=== PATIENT | female | born 1985 | race Caucasian/White ===

== ENCOUNTER 2018-01-02 17:52 | Emergency (ER) | payer MEDICAID ==
[~2018-01-02] VITALS: Ht 170.2 cm; Wt 65.2 kg
[2018-01-02 18:59] VITALS: BP 108/60
[2018-01-02] MEDS ORDERED: CEFTRIAXONE 250 MG IM ONE (19:00)
[2018-01-02] MEDS ORDERED: AZITHROMYCIN 500 MG TABLET PO ONE (19:00)
[2018-01-02 19:01] LABS: BASOPHILS # (AUTO) 0.11 x10^3/uL (0-0.1); BASOPHILS % (AUTO) 1 % (0-1); EOSINOPHILS # (AUTO) 0.16 x10^3/uL (0-0.4); EOSINOPHILS % (AUTO) 1 % (1-7); LYMPHOCYTES # (AUTO) 2.66 x10^3/uL (1-3.4); LYMPHOCYTES % (AUTO) 23 % (22-44); MD NO; MEAN CORPUSCULAR HEMOGLOBIN 32.3 pg (27.0-34.8); MEAN CORPUSCULAR HGB CONC 33.4 g/dL (32.4-35.8); MEAN CORPUSCULAR VOLUME 96.6 fL (80-100); MEAN PLATELET VOLUME 8.1 fL (7.4-10.4); MONOCYTES % (AUTO) 7 % (2-9); NEUTROPHILS # (AUTO) 8.05 x10^3/uL (1.8-6.8); NEUTROPHILS % (AUTO) 68 % (42-75); PLATELET COUNT 306 x10^3/uL (130-400); RED BLOOD COUNT 4.22 x10^6/uL (3.82-5.3); RED CELL DISTRIBUTION WIDTH 13.4 % (9.6-15.2)
[2018-01-02 19:02] LABS: MICROSCOPIC NOT IND
[2018-01-02] MEDS ORDERED: AZITHROMYCIN 250 MG TABLET ONE (19:11)
[2018-01-02] MEDS ORDERED: CEFTRIAXONE 1,000 MG ONE (19:11)
[2018-01-02 19:13] LABS: CULTURE INDICATED? NO
[2018-01-02 19:13] LABS: CLUE CELLS PRESENT (NONE SEEN); WET PREP WBCS NONE SEEN (FEW)
[2018-01-02] MEDS ORDERED: PLEASE ENTER ALLERGIES MC SCH (19:30)
== END 2018-01-02 21:10 | disposition home or self-care (01) ==
LOC: ED 21:00
DX: N76.0 Acute vaginitis (principal); N83.201 Unspecified ovarian cyst, right side; B96.89 Other specified bacterial agents as the cause of diseases classified elsewhere
CPT/HCPCS: 36415; 76830; 81003; 84703; 85025; 87210; 87491; 87591; 87808; 96372; 99285; J0696

== ENCOUNTER 2018-05-11 12:03 | Emergency (ER) | payer MEDICAID ==
[~2018-05-11] VITALS: Ht 170.2 cm; Wt 62.7 kg
[2018-05-11 12:11] VITALS: BP 99/68
[2018-05-11] MEDS ORDERED: APIX5TAB PO (12:41)
[2018-05-11 13:05] LABS: MICROSCOPIC NOT IND
[2018-05-11 13:06] LABS: CULTURE INDICATED? NO; HCG UR SG 1.015 (1.003-1.030)
== END 2018-05-11 14:05 | disposition home or self-care (01) ==
LOC: ED 13:50
DX: N76.0 Acute vaginitis (principal); N89.8 Other specified noninflammatory disorders of vagina
CPT/HCPCS: 81003; 81025; 99284

== ENCOUNTER 2018-11-05 13:32 | Emergency (ER) | payer SELFPAY ==
[~2018-11-05] VITALS: Ht 170.2 cm; Wt 63.4 kg
[~2018-11-05 13:32] MED LIST: APIX5TAB PO
[2018-11-05 14:10] VITALS: BP 138/75
--- NOTE | 2018-11-05 14:45 | NUR ---
UA COLLECTED AND SENT TO LAB. PA STUDENT AT BS FOR INITIAL ASSESSMENT. PT/ROOM/ALEJANDRARJASON PREPARED FOR PELVIC EXAM
[2018-11-05 14:57] LABS: HCG UR SG 1.033 (1.003-1.030); MICROSCOPIC NOT IND
[2018-11-05 15:05] LABS: CULTURE INDICATED? NO
[2018-11-05 16:09] LABS: CLUE CELLS PRESENT (NONE SEEN); WET PREP WBCS FEW (FEW)
[2018-11-05] MEDS ORDERED: AZITHROMYCIN 250 MG TABLET ONE (16:29)
[2018-11-05] MEDS ORDERED: CEFTRIAXONE 250 MG ONE (16:29)
[2018-11-05] MEDS ORDERED: AZITHROMYCIN 250 MG TABLET PO ONE (16:30)
[2018-11-05] MEDS ORDERED: CEFTRIAXONE 250 MG IM ONE (16:30)
--- NOTE | 2018-11-05 16:43 | NUR ---
PT MEDICATED PER EMAR. PT REPORTS HAVING TAKEN SAME RX PRIOR WO S/S OF RXN. DESPITE EDUCATION, PT REQUESTING DC. DC EDUCATION PROVIDED, PT DEMONSTRATES UNDERSTANDING. PT AMBULATED STEADILY TO DC WITH RN
== END 2018-11-05 16:47 | disposition home or self-care (01) ==
LOC: ED 15:50
DX: N76.0 Acute vaginitis (principal); Z90.49 Acquired absence of other specified parts of digestive tract
CPT/HCPCS: 81003; 81025; 87210; 87491; 87591; 87808; 96372; 99283; J0696

== ENCOUNTER 2018-11-26 20:27 | Emergency (ER) | payer SELFPAY ==
[~2018-11-26] VITALS: Ht 170.2 cm; Wt 63.2 kg
[2018-11-26 20:29] VITALS: BP 116/62
[2018-11-26] MEDS ORDERED: ACYC-113 PO (20:33)
[2018-11-26 21:16] LABS: MICROSCOPIC NOT IND
[2018-11-26 21:18] LABS: CULTURE INDICATED? NO
[2018-11-26] MEDS ORDERED: ACETAMINOPHEN 325 MG TABLET PO ONE (21:30)
[2018-11-26 21:37] LABS: BASOPHILS # (AUTO) 0.04 x10^3/uL (0-0.1); BASOPHILS % (AUTO) 1 % (0-1); EOSINOPHILS # (AUTO) 0.13 x10^3/uL (0-0.4); EOSINOPHILS % (AUTO) 2 % (1-7); LYMPHOCYTES # (AUTO) 3.05 x10^3/uL (1-3.4); LYMPHOCYTES % (AUTO) 43 % (22-44); MD NO; MEAN CORPUSCULAR HEMOGLOBIN 32.9 pg (27.0-34.8); MEAN CORPUSCULAR HGB CONC 34.2 g/dL (32.4-35.8); MEAN CORPUSCULAR VOLUME 96.4 fL (80-100); MEAN PLATELET VOLUME 8.3 fL (7.4-10.4); MONOCYTES # (AUTO) 0.56 x10^3/uL (0.2-0.8); MONOCYTES % (AUTO) 8 % (2-9); NEUTROPHILS # (AUTO) 3.26 x10^3/uL (1.8-6.8); NEUTROPHILS % (AUTO) 46 % (42-75); PLATELET COUNT 263 x10^3/uL (130-400); RED BLOOD COUNT 3.93 x10^6/uL (3.82-5.3); RED CELL DISTRIBUTION WIDTH 13.4 % (9.6-15.2)
[2018-11-26 21:49] LABS: ALANINE AMINOTRANSFERASE 17 U/L (12-78); ALBUMIN 3.6 g/dL (3.4-5.0); ANION GAP 7 mmol/L (5-15); CALCIUM 8.5 mg/dL (8.5-10.1); CHLORIDE 108 mmol/L (98-107); CREATININE 0.73 mg/dL (0.55-1.02)
[2018-11-26 21:54] LABS: ALKALINE PHOSPHATASE 36 U/L (45-117); BILIRUBIN,TOTAL 0.2 mg/dL (0.2-1.0); TOTAL PROTEIN 6.7 g/dL (6.4-8.2)
[2018-11-26 22:57] LABS: WET PREP WBCS NONE SEEN (FEW)
[2018-11-26 23:01] LABS: CLUE CELLS PRESENT (NONE SEEN)
[2018-11-26] MEDS ORDERED: ACETAMINOPHEN 325 MG TABLET ONE (23:26)
== END 2018-11-26 23:45 | disposition home or self-care (01) ==
LOC: ED 21:04
DX: N76.0 Acute vaginitis (principal); G89.11 Acute pain due to trauma; M25.512 Pain in left shoulder
CPT/HCPCS: 36415; 80053; 81003; 84703; 85025; 87210; 87491; 87591; 87808; 99284

== ENCOUNTER 2019-11-18 08:40 | Emergency (ER) | payer MEDICAID, OTHER ==
[~2019-11-18] VITALS: Ht 170.2 cm; Wt 65.8 kg
[~2019-11-18 08:40] MED LIST changes: +ACYC-113 PO
--- NOTE | 2019-11-18 08:55 | NUR ---
Per pt, "flu like" symptoms x1 week. Dry cough, sensation of having a fever. NAD noted at this time. No WOB noted. spo2 monitoring, pt saturating well on RA. Pt has mask in place. Door closed.
[2019-11-18 09:28] LABS: BASOPHILS # (AUTO) 0.03 x10^3/uL (0-0.1); BASOPHILS % (AUTO) 1 % (0-1); EOSINOPHILS # (AUTO) 0.09 x10^3/uL (0-0.4); EOSINOPHILS % (AUTO) 2 % (1-7); LYMPHOCYTES # (AUTO) 2.07 x10^3/uL (1-3.4); LYMPHOCYTES % (AUTO) 41 % (22-44); MD NO; MEAN CORPUSCULAR HEMOGLOBIN 32.2 pg (27.0-34.8); MEAN CORPUSCULAR VOLUME 97.7 fL (80-100); MONOCYTES # (AUTO) 0.53 x10^3/uL (0.2-0.8); MONOCYTES % (AUTO) 10 % (2-9); NEUTROPHILS # (AUTO) 2.37 x10^3/uL (1.8-6.8); NEUTROPHILS % (AUTO) 47 % (42-75); PLATELET COUNT 258 x10^3/uL (130-400); RED CELL DISTRIBUTION WIDTH 12.9 % (9.6-15.2)
[2019-11-18] MEDS ORDERED: HYDROcodone/APAP 7.5-325MG/15ML UDC PO ONE (09:30)
[2019-11-18] MEDS ORDERED: HYDROcodone/APAP 7.5-325MG/15ML UDC ONE (09:56)
[2019-11-18 10:00] VITALS: BP 114/66
--- NOTE | 2019-11-18 10:02 | NUR ---
NAD noted in pt at this time. Pt laying on side in bed. Ambulates well independently to bathroom and back.
--- NOTE | 2019-11-18 11:00 | NUR ---
pt reports full body aches gone, now just soreness in ribs/chest remains. No WOB. NAD noted.
--- NOTE | 2019-11-18 11:20 | NUR ---
Pt up for recheck. NAD noted at this time.
--- NOTE | 2019-11-18 11:47 | NUR ---
AWAITING CHART FROM PROVIDER FOR DC.
== END 2019-11-18 11:58 | disposition home or self-care (01) ==
LOC: ED 08:59
DX: B34.9 Viral infection, unspecified (principal); B35.4 Tinea corporis; F17.290 Nicotine dependence, other tobacco product, uncomplicated
CPT/HCPCS: 36415; 71045; 85025; 87081; 87880; 99284

== ENCOUNTER 2019-11-22 07:43 | Emergency (ER) | payer MEDICAID ==
[~2019-11-22] VITALS: Ht 170.2 cm; Wt 64.4 kg
--- NOTE | 2019-11-22 07:56 | NUR ---
[facility] BS FOR EXAM. PT C/O RINGWORM LESIONS SPREADING ALL OVER BODY. STARTED W/ "LARGE" PATCH ON LT UPPER CHEST. NOT IMPROVING W/ ANTIFUNGAL. HAS USED BLEACH AND APPLE CIDER APPLICATIONS W/OUT RELIEF.
[2019-11-22 08:07] VITALS: BP 114/69
--- NOTE | 2019-11-22 08:10 | NUR ---
PT REPORTS SEVERE ALLERGY TO TREE NUTS AND BEE STINGS. STATES SHE DOESN'T HAVE AN EPI PEN BUT WOULD LIKE A SCRIPT FOR ONE. STATES SHE DOESN'T HAVE A PCP YET. AC WILL BE NOTIFIED.
== END 2019-11-22 08:30 | disposition home or self-care (01) ==
LOC: ED 08:20
DX: L42 Pityriasis rosea (principal); Z76.0 Encounter for issue of repeat prescription
CPT/HCPCS: 99281

== ENCOUNTER 2019-12-11 09:23 | Emergency (ER) | payer MEDICAID ==
[~2019-12-11] VITALS: Ht 170.2 cm; Wt 63.6 kg
[2019-12-11] MEDS ORDERED: EPINEPHRINE 1 MG/ML, 1ML SQ ONE (09:30)
[2019-12-11] MEDS ORDERED: FAMOTIDINE 20 MG/2 ML IVPush ONE (09:30)
[2019-12-11] MEDS ORDERED: DEXAMETHASONE 4 MG/ML, 1ML IVPush ONE (09:30)
[2019-12-11] MEDS ORDERED: SODIUM CHLORIDE FLUSH 10ML SYR IVF ONE (09:30)
[2019-12-11] MEDS ORDERED: DEXAMETHASONE 4 MG/ML, 5ML ONE (09:34)
[2019-12-11] MEDS ORDERED: EPINEPHRINE 1 MG/ML, 1ML ONE (09:35)
[2019-12-11] MEDS ORDERED: FAMOTIDINE 20 MG/2 ML ONE (09:35)
--- NOTE | 2019-12-11 10:28 | NUR ---
PT SLEEPING IN GURNEY, HIVES AND FACIAL SWELLING ALMOST ENTIRELY RESOLVED. NO NAUSEA, 1L IVF INFUSING
[2019-12-11] MEDS ORDERED: SODIUM CHLORIDE 0.9% 1,000ML IVBOLUS ONE (10:30)
[2019-12-11 11:54] VITALS: BP 110/74
== END 2019-12-11 11:56 | disposition home or self-care (01) ==
LOC: ED 10:10
DX: T78.05XA Anaphylactic reaction due to tree nuts and seeds, initial encounter (principal); L50.0 Allergic urticaria; F17.200 Nicotine dependence, unspecified, uncomplicated; R06.02 Shortness of breath; X58.XXXA Exposure to other specified factors, initial encounter
CPT/HCPCS: 96372; 96374; 96375; 99284; J0171; J1100; J3490; J7030

== ENCOUNTER 2020-01-01 11:29 | Emergency (ER) | payer MEDICAID ==
[2020-01-01 11:32] VITALS: BP 108/75
--- NOTE | 2020-01-01 11:47 | NUR ---
PT AMBULATORY TO ROOM, STEADY GAIT. ERP TO BEDSIDE.
[2020-01-01] MEDS ORDERED: DIAZEPAM 5 MG TABLET ONE (11:55)
[2020-01-01] MEDS ORDERED: KETOROLAC 30 MG/1 ML ONE (11:56)
[2020-01-01] MEDS ORDERED: KETOROLAC 30 MG/1 ML IM ONE (12:00)
[2020-01-01] MEDS ORDERED: DIAZEPAM 5 MG TABLET PO ONE (12:00)
--- NOTE | 2020-01-01 12:15 | NUR ---
PT SITTING IN BED, WATCHING TV. NO SIGNS OF DISTRESS. WILL CONTINUE TO MONITOR.
== END 2020-01-01 12:51 | disposition home or self-care (01) ==
LOC: ED 11:58
DX: S39.012A Strain of muscle, fascia and tendon of lower back, initial encounter (principal); G89.11 Acute pain due to trauma; X58.XXXA Exposure to other specified factors, initial encounter; Z90.49 Acquired absence of other specified parts of digestive tract; Y93.89 Activity, other specified; Y92.89 Other specified places as the place of occurrence of the external cause; Y99.8 Other external cause status
CPT/HCPCS: 96372; 99283; J1885

== ENCOUNTER 2020-05-08 12:27 | Emergency (ER) | payer MEDICAID ==
[~2020-05-08] VITALS: Ht 170.2 cm; Wt 60.9 kg
[2020-05-08 12:36] VITALS: BP 129/69
== END 2020-05-08 13:24 | disposition home or self-care (01) ==
LOC: ED 13:14
DX: K08.89 Other specified disorders of teeth and supporting structures (principal); J02.9 Acute pharyngitis, unspecified
CPT/HCPCS: 99283

== ENCOUNTER 2020-06-08 09:38 | Emergency (ER) | payer MEDICAID ==
[~2020-06-08] VITALS: Ht 170.2 cm; Wt 61.7 kg
[2020-06-08 09:48] VITALS: BP 131/60
[2020-06-08] MEDS ORDERED: HYDROcodone/APAP 5/325 TABLET ONE (10:44)
[2020-06-08] MEDS ORDERED: HYDROcodone/APAP 5/325 TABLET PO ONE (11:00)
--- NOTE | 2020-06-08 11:05 | NUR ---
PT C/O LEFT SHOULDER SINCE LAST MONDAY. PT WAS MOVING A COUCH AND FELT A POP IN THE SHOULDER. PAIN RADIATES UP TO THE NECK. PT STATES MINIMAL RELIEF WITH TYLENOL.
--- NOTE | 2020-06-08 14:33 | NUR ---
task RN note: report taken from FABI Shaw, isha orders received. pt refusing repeat vs. pt is awake, alert, oriented. resps even and unlabored. pt ambulatory with steady gait, also refusing arm sling, states she has one at home. pt given dc instructions and script, educated regarding rx for norco and flexiril. consent for controlled substance rx signed by pt and MD. pt ambulatory to dc desk with steady gait, all questions answered.
== END 2020-06-08 14:33 | disposition home or self-care (01) ==
LOC: ED 11:22
DX: S46.812A Strain of other muscles, fascia and tendons at shoulder and upper arm level, left arm, initial encounter (principal); M54.6 Pain in thoracic spine; Z90.49 Acquired absence of other specified parts of digestive tract; X50.0XXA Overexertion from strenuous movement or load, initial encounter; Y93.89 Activity, other specified; Y92.098 Other place in other non-institutional residence as the place of occurrence of the external cause; Y99.8 Other external cause status
CPT/HCPCS: 72072; 99284

== ENCOUNTER 2020-07-13 09:51 | Emergency (ER) | payer MEDICAID ==
[~2020-07-13] VITALS: Ht 170.2 cm; Wt 59.5 kg
[2020-07-13] MEDS ORDERED: KETOROLAC 30 MG/1 ML ONE (10:13)
--- NOTE | 2020-07-13 10:19 | NUR ---
PT C/O LEFT SHOULDER AND WRIST PAIN, RIGHT ELBOW AND TAILBONE PAIN AFTER FALL DOWN STAIRS AT 0530. PT UNSURE OF LOC. PT STATES NO BLEEDING AT THIS TIME.
--- NOTE | 2020-07-13 10:24 | NUR ---
OFF THE FLOOR TO XRAY
[2020-07-13] MEDS ORDERED: KETOROLAC 30 MG/1 ML IM ONE (11:00)
[2020-07-13] MEDS ORDERED: HYDROcodone/APAP 5/325 TABLET ONE (11:40)
[2020-07-13 11:59] VITALS: BP 102/50
[2020-07-13] MEDS ORDERED: HYDROcodone/APAP 5/325 TABLET PO ONE (12:00)
--- NOTE | 2020-07-13 12:03 | NUR ---
PT REC'VD DISCHARGE INSTRUCTIONS AND EDUCATION. PT HAD NO FURTHER QUESTIONS. PT AMBULATED TO DC AREA, STEADY GAIT.
== END 2020-07-13 12:05 | disposition home or self-care (01) ==
LOC: ED 12:04
DX: S40.012A Contusion of left shoulder, initial encounter (principal); S60.212A Contusion of left wrist, initial encounter; S50.01XA Contusion of right elbow, initial encounter; M54.5 Low back pain; W18.39XA Other fall on same level, initial encounter; Y93.89 Activity, other specified; Y92.098 Other place in other non-institutional residence as the place of occurrence of the external cause; Y99.8 Other external cause status
CPT/HCPCS: 29125; 72220; 73010; 73030; 73080; 73110; 96372; 99284; J1885

== ENCOUNTER 2020-09-29 13:48 | Emergency (ER) | payer MEDICAID ==
[~2020-09-29] VITALS: Ht 170.2 cm; Wt 57.9 kg
[2020-09-29] MEDS ORDERED: DIAZEPAM 5 MG TABLET ONE (14:25)
[2020-09-29] MEDS ORDERED: KETOROLAC 30 MG/1 ML ONE (14:25)
[2020-09-29] MEDS ORDERED: KETOROLAC 30 MG/1 ML IM ONE (14:30)
[2020-09-29] MEDS ORDERED: DIAZEPAM 5 MG TABLET PO ONE (14:30)
[2020-09-29 15:22] VITALS: BP 106/64
== END 2020-09-29 15:35 | disposition home or self-care (01) ==
LOC: ED 15:21
DX: S39.012A Strain of muscle, fascia and tendon of lower back, initial encounter (principal); S40.011A Contusion of right shoulder, initial encounter; Z90.89 Acquired absence of other organs; W10.8XXA Fall (on) (from) other stairs and steps, initial encounter; Y93.89 Activity, other specified; Y92.098 Other place in other non-institutional residence as the place of occurrence of the external cause; Y99.8 Other external cause status
CPT/HCPCS: 72220; 96372; 99283; J1885

== ENCOUNTER 2021-04-07 19:40 | Emergency (ER) | payer MEDICAID ==
[~2021-04-07] VITALS: Ht 170.2 cm; Wt 64.7 kg
[~2021-04-07 19:40] MED LIST changes: -ACYC-113 PO; +ACYC200C13 PO
[2021-04-07 19:47] VITALS: BP 125/72
--- NOTE | 2021-04-07 20:41 | NUR ---
[id number]
--- NOTE | 2021-04-07 20:53 | NUR ---
NIL X 2
--- NOTE | 2021-04-07 21:40 | NUR ---
NIL X 3
== END 2021-04-07 21:41 | disposition home or self-care (01) ==
LOC: ED 19:45
DX: F41.0 Panic disorder [episodic paroxysmal anxiety] (principal); Z53.21 Procedure and treatment not carried out due to patient leaving prior to being seen by health care provider